=== PATIENT | female | born 1970 | race African-American/Black ===

== ENCOUNTER 2019-03-17 11:02 | Emergency (ER) | payer OTHER ==
[~2019-03-17] VITALS: Ht 165.1 cm; Wt 77.1 kg
[2019-03-17] MEDS ORDERED: BUTALB-APAP-CA1 EACH PO (12:11)
[2019-03-17 12:16] VITALS: BP 99/59
== END 2019-03-17 12:16 | disposition home or self-care (01) ==
LOC: ER 11:02
DX: S06.0X0A Concussion without loss of consciousness, initial encounter (principal); W01.198A Fall on same level from slipping, tripping and stumbling with subsequent striking against other object, initial encounter; Y93.89 Activity, other specified; Y92.89 Other specified places as the place of occurrence of the external cause; Y99.8 Other external cause status; Z88.1 Allergy status to other antibiotic agents